=== PATIENT | female | born 1980 | race Caucasian/White ===

== ENCOUNTER → 2016-11-15 | Day surgery (SDC) | payer OTHER ==
[~2016-11-15] MED LIST: BUPROPION XL300 MG PO; CENTRUM PO
--- NOTE | ~2016-11-15 | OR ---
Unit #: [id number] #: [id number] Patient: RONNIE VARGAS [id number] [address] [place], [place] [address] [id number] MR#: [id number] NAME: RONNIE VARGAS ROOM: Date of Procedure: 11/15/2016 Admission Date: 11/15/2016 Surgeon: Cleveland Hebert M.D. : 1980 Attending Physician: Cleveland Hebert M.D. OPERATIVE REPORT PRIMARY CARE PHYSICIAN Mya Snow M.D. PREOPERATIVE DIAGNOSES The patient has come for surveillance colonoscopy. She has family history of colon cancer. Her father and grandmother had colon cancer in their 30s. PROCEDURES PERFORMED Colonoscopy and biopsy. POSTOPERATIVE DIAGNOSES 1. Single sessile polyp in the mid sigmoid colon. This was diminutive and was removed using cold biopsy forceps. 2. Rest of the examination up to cecum and terminal ileum was normal. The quality of the prep was excellent. No diverticula or hemorrhoids were seen. RECOMMENDATIONS 1. Follow up the results of polyp histology. 2. Consider repeat colonoscopy in 5 years. SEDATION USED MAC. DESCRIPTION OF PROCEDURE Following detailed explanation of potential risks and complications of a colonoscopy, namely perforation, bleeding, and complications related to sedation, the patient was brought to GI lab and laid in the left lateral decubitus position. A digital rectal examination was performed, which was normal. Lubricated tip of the Olympus video colonoscope was inserted through the anus and advanced under direct vision. The scope was advanced past rectosigmoid into descending colon. No diverticula were noted in this area. The scope tip was then navigated all the way up to cecum with visualization of the ileocecal valve and the appendiceal orifice. Preparation was excellent with good visualization and photodocumentation was obtained. Last few inches of the terminal ileum were also visualized after intubation of the ileocecal valve and appeared normal. Successive segments of the colonic mucosa were examined upon withdrawal and appeared unremarkable except for a single sessile polyp in the mid sigmoid colon. This was diminutive and was removed using cold biopsy forceps. No additional polyps were noted. The patient did not have any diverticulosis nor any hemorrhoids. The scope was then withdrawn and the patient Unit #: [id number] #: [id number] Patient: RONNIE VARGAS returned to the recovery area. She tolerated the procedure without any postprocedure complications. Dictated by... Gerda Monique/james TD: 11/15/2016 11:08 JOB #: [id number] CC: Mya Snow M.D. OPERATIVE REPORT Page 1 of 1 X Cleveland Hebert MD X PROCEDURE OPERATIVE NOTE
== END | disposition home or self-care (01) ==
LOC: COPS 06:01
DX: Z12.11 Encounter for screening for malignant neoplasm of colon (principal); K63.5 Polyp of colon; Z80.0 Family history of malignant neoplasm of digestive organs; Z79.899 Other long term (current) drug therapy
CPT/HCPCS: 84703; 88305; J2250